=== PATIENT | female | born 1945 | race Caucasian/White ===

== ENCOUNTER 2021-09-19 13:29 | Inpatient (IN) | payer MEDICARE, OTHER ==
[~2021-09-19] VITALS: Ht 157.5 cm; Wt 81.2 kg
[2021-09-19 14:23] LABS: Basophils # (auto) 0 10 ^3/uL (0-0.2); Basophils % (auto) 0.5 % (0.0-2.0); Eosinophils # (auto) 0.2 10 ^3/uL (0-0.8); Eosinophils % (auto) 2.2 % (0.0-7.0); Hematocrit 41.2 % (36.0-46.0); Hemoglobin 14.2 g/dL (12.2-16.2); Lymphocytes # (auto) 1.7 10 ^3/uL (0.4-5.4); Mean Corpuscular Hemoglobin 30.7 pg (28.0-32.0); Mean Corpuscular Hgb Conc. 34.6 g/dL (32.0-36.0); Mean Corpuscular Volume 88.8 fL (80.0-100.0); Monocytes # (auto) 0.5 10 ^3/uL (0-1.3); Monocytes % (auto) 6.2 % (0.0-12.0); Neutrophils # (auto) 6.1 10 ^3/uL (1.6-8.6); Neutrophils % (auto) 71.1 % (37.0-80.0); Nucleated Red Blood Cells % 0.1 %; Red Blood Cells 4.64 10^6/uL (4.0-5.20); Red Cell Distribution Width 13.3 % (11.8-14.3); White Blood Cell 8.7 10^3/uL (4.4-10.8)
[2021-09-19 14:41] LABS: Albumin 3.7 g/dL (3.4-5.0); BUN/Creatinine Ratio 23.4; Calcium 8.9 mg/dL (8.5-10.1); Potassium 3.9 mmol/L (3.5-5.1)
[2021-09-19 14:44] LABS: Bilirubin, Total 0.3 mg/dL (0.2-1.0); Total Protein 6.9 g/dL (6.4-8.2)
[2021-09-19 15:40] LABS: Urine Bacteria FEW /hpf (None Seen); Urine Blood Negative /uL (Negative); Urine Specific Gravity 1.008 (1.001-1.035); Urine WBC 15 /hpf (0 - 5)
[2021-09-19] MEDS ORDERED: ASPirin 81 mg TAB PO ONE (16:45)
[2021-09-19] MEDS ORDERED: NITROGLYCERIN 0.4 MG SL TAB SL ONE (16:45)
[2021-09-19] MEDS ORDERED: NITROGLYCERIN 0.4 MG SL TAB SL PRN (21:15)
[2021-09-19] MEDS ORDERED: cefTRIAXone 1GM/50ML D5W 50 ML IV ONE (21:15)
[2021-09-19] MEDS ORDERED: ACETAMINOPHEN 325 MG TAB PO PRN (21:15)
[2021-09-19] MEDS ORDERED: MORPHINE SULFATE INJECTION 2 MG/ML SYRG IV PRN (21:15)
[2021-09-19] MEDS ORDERED: ONDANSETRON HCL 4 MG/2 ML VIAL IV PRN (21:15)
[2021-09-19 22:00] VITALS: BP 179/79
[2021-09-19] MEDS: APIXABAN 5 MG TAB PO SCH (22:06)
[2021-09-19] MEDS: ATORVASTATIN 20 MG TAB PO SCH (22:07)
[2021-09-19 22:40] LABS: INR 1.05 (0.9-1.15); Partial Thromboplastin Time 24.9 sec (23.6-33.0)
[2021-09-20] MEDS ORDERED: CALC667C PO (01:05)
[2021-09-20] MEDS ORDERED: SIMV10TA84 PO (01:05)
[2021-09-20] MEDS ORDERED: PANT40TA2 PO (01:05)
[2021-09-20] MEDS ORDERED: LEVO100T8 PO (01:05)
[2021-09-20] MEDS ORDERED: PHE100C PO (01:05)
[2021-09-20] MEDS ORDERED: LISI-275 PO (01:05)
[2021-09-20] MEDS ORDERED: CYCL0.05 EACHEYE (01:05)
[2021-09-20] MEDS ORDERED: APIX5TAB PO (01:05)
[2021-09-20] MEDS ORDERED: MULT-1018 PO (01:05)
[2021-09-20] MEDS ORDERED: ALEN70TA74 PO (01:05)
[2021-09-20] MEDS: TEMAZEPAM 15 MG CAP PO PRN ×2 (01:11→21:43)
[2021-09-20 05:00] VITALS: BP 147/73
[2021-09-20] MEDS: LEVOTHYROXINE SODIUM 100 MCG TAB PO SCH (06:29)
[2021-09-20 06:50] LABS: Basophils # (auto) 0 10 ^3/uL (0-0.2); Basophils % (auto) 0.5 % (0.0-2.0); Eosinophils # (auto) 0.3 10 ^3/uL (0-0.8); Eosinophils % (auto) 4.6 % (0.0-7.0); Hematocrit 38.2 % (36.0-46.0); Hemoglobin 13.7 g/dL (12.2-16.2); Mean Corpuscular Hemoglobin 31.8 pg (28.0-32.0); Mean Corpuscular Volume 88.4 fL (80.0-100.0); Monocytes # (auto) 0.6 10 ^3/uL (0-1.3); Monocytes % (auto) 8.5 % (0.0-12.0); Neutrophils # (auto) 3.8 10 ^3/uL (1.6-8.6); Neutrophils % (auto) 56.4 % (37.0-80.0); Nucleated Red Blood Cells % 0.1 %; Red Blood Cells 4.32 10^6/uL (4.0-5.20); Red Cell Distribution Width 13.2 % (11.8-14.3); White Blood Cell 6.7 10^3/uL (4.4-10.8)
[2021-09-20 07:05] LABS: BUN/Creatinine Ratio 19.2; Calcium 8.4 mg/dL (8.5-10.1); Potassium 3.6 mmol/L (3.5-5.1)
[2021-09-20 09:00] VITALS: BP 132/75
[2021-09-20] MEDS: cefTRIAXone 1GM/50ML D5W 50 ML IV SCH (09:11)
[2021-09-20] MEDS: APIXABAN 5 MG TAB PO SCH ×2 (09:11→21:42)
[2021-09-20] MEDS: LISINOPRIL 5 MG TAB PO SCH (09:12)
[2021-09-20] MEDS ORDERED: PANTOPRAZOLE 40 MG TAB PO SCH (10:00)
[2021-09-20] MEDS ORDERED: ASPirin 81 mg TAB PO SCH (10:00)
[2021-09-20 13:07] VITALS: BP 158/89
[2021-09-20 17:13] VITALS: BP 143/79
[2021-09-20] MEDS: SERTRALINE HCL 50 MG TAB PO SCH (21:42)
[2021-09-20] MEDS: ATORVASTATIN 20 MG TAB PO SCH (21:43)
[2021-09-20 22:00] VITALS: BP 146/87
[2021-09-21 05:00] VITALS: BP 153/84
[2021-09-21] MEDS: LEVOTHYROXINE SODIUM 100 MCG TAB PO SCH (06:42)
[2021-09-21] MEDS ORDERED: REGADENOSON 0.4 MG/5 ML SYRG IV ONE ×2 (08:52→09:00)
[2021-09-21 09:00] VITALS: BP 148/88
[2021-09-21] MEDS: APIXABAN 5 MG TAB PO SCH (11:04)
[2021-09-21] MEDS: LISINOPRIL 5 MG TAB PO SCH (11:04)
[2021-09-21] MEDS: cefTRIAXone 1GM/50ML D5W 50 ML IV SCH (11:04)
[2021-09-21] MEDS: SERTRALINE HCL 50 MG TAB PO SCH (11:05)
[2021-09-21] MEDS ORDERED: CEFU500T43 PO (11:51)
[2021-09-21 13:00] VITALS: BP 165/89
== END 2021-09-21 17:15 | disposition home or self-care (01) | DRG 303 ==
LOC: ER 13:29 → TELE 21:07 → TELE-WESTW 22:20
PROVIDERS: ADMIT Nurse Practitioner; ATTEND Internal Medicine
DX: I25.110 Atherosclerotic heart disease of native coronary artery with unstable angina pectoris (principal); N39.0 Urinary tract infection, site not specified; D68.69 Other thrombophilia; I12.9 Hypertensive chronic kidney disease with stage 1 through stage 4 chronic kidney disease, or unspecified chronic kidney disease; I48.91 Unspecified atrial fibrillation; N18.9 Chronic kidney disease, unspecified; Z20.822 Contact with and (suspected) exposure to COVID-19; E03.9 Hypothyroidism, unspecified; E66.9 Obesity, unspecified; E78.5 Hyperlipidemia, unspecified; J45.909 Unspecified asthma, uncomplicated; Z68.32 Body mass index [BMI] 32.0-32.9, adult
CPT/HCPCS: 36415; 71045; 78452; 80048; 80053; 81001; 83880; 84443; 84484; 85025; 85379; 85610; 85730; 93005; 93017; 93306; 96365; G0378; J0696